=== PATIENT | male | born 1980 | race Caucasian/White ===

== ENCOUNTER 2019-12-01 00:20 | Emergency (ER) | payer OTHER ==
[~2019-12-01] VITALS: Ht 182.9 cm; Wt 81.8 kg
[2019-12-01] MEDS ORDERED: GABAPENTIN100 MG PO (00:50)
[2019-12-01 00:57] LABS: HEMATOCRIT 28.3 % (39.0-50.0); HEMOGLOBIN 8.6 g/dl (14.0-18.0); IMMATURE GRANULOCYTES 0.3 % (0.0-5.0); MEAN CELL VOLUME 78.6 fL CALC (80.0-100.0); MEAN CORPUSCULAR HGB 23.9 pG CALC (26.0-32.0); MEAN CORPUSCULAR HGB CONC 30.4 g/dL CAL (32.0-36.0); NEUT# 4.5 thou/uL (1.82-7.42); RED BLOOD COUNT 3.6 mill/uL (4.70-6.10); RED CELL DISTRI WIDTH 18.5 % (11.5-15.5)
[2019-12-01 01:22] LABS: ALBUMIN 4.1 g/dL (3.2-5.0); ALKALINE PHOSPHATASE 37 u/l (38-126); ANION GAP 12 (6-22 (CALC)); BILIRUBIN, TOTAL 0.2 mg/dL (0.0-1.4); BUN 15 mg/dL (9-20); BUN/CREATININE RATIO 17 (12-20 (CALC)); CARBON DIOXIDE 27 mmol/l (22-30); CHLORIDE 102 mmol/l (95-108); CREATININE 0.9 mg/dL (0.7-1.3); GFR > 60 ML/MIN (>=60 (CALC)); GFR FOR AFR.AMER. > 60 ML/MIN (>=60 (CALC)); POTASSIUM 4.3 mmol/l (3.5-5.1); SGOT/AST 36 u/l (17-59); SODIUM 137 mmol/l (137-146); TOTAL PROTEIN 6.6 g/dL (6.3-8.2)
[2019-12-01] MEDS ORDERED: CHROMAGEN1 CAP PO (01:47)
[2019-12-01 01:56] VITALS: BP 118/63
== END 2019-12-01 02:03 | DRG 551 ==
LOC: ED 00:20
PROVIDERS: Family Medicine
DX: S16.1XXA Strain of muscle, fascia and tendon at neck level, initial encounter (principal); S51.811A Laceration without foreign body of right forearm, initial encounter; D64.9 Anemia, unspecified; U07.1 COVID-19; G40.909 Epilepsy, unspecified, not intractable, without status epilepticus; B19.20 Unspecified viral hepatitis C without hepatic coma; W18.30XA Fall on same level, unspecified, initial encounter; Y92.149 Unspecified place in prison as the place of occurrence of the external cause; X83.8XXA Intentional self-harm by other specified means, initial encounter

== ENCOUNTER 2020-02-08 22:43 | Emergency (ER) | payer OTHER ==
[~2020-02-08] VITALS: Ht 182.9 cm; Wt 82.0 kg
[~2020-02-08 22:43] MED LIST: CHROMAGEN1 CAP PO; GABAPENTIN100 MG PO
[2020-02-08 23:17] VITALS: BP 106/59
[2020-02-08 23:39] LABS: HEMATOCRIT 24.6 % (39.0-50.0); IMMATURE GRANULOCYTES 0.3 % (0.0-5.0); MEAN CORPUSCULAR HGB 19.4 pG CALC (26.0-32.0); MEAN CORPUSCULAR HGB CONC 27.2 g/dL CAL (32.0-36.0); NEUT# 4.7 thou/uL (1.82-7.42); RED BLOOD COUNT 3.45 mill/uL (4.70-6.10); RED CELL DISTRI WIDTH 17.4 % (11.5-15.5)
[2020-02-08 23:48] LABS: HEMOGLOBIN 6.7 g/dl (14.0-18.0); MEAN CELL VOLUME 71.3 fL CALC (80.0-100.0)
== END 2020-02-09 00:25 | disposition left against medical advice (07) | DRG 605 ==
LOC: ED 22:43
PROVIDERS: Family Medicine
DX: S51.811A Laceration without foreign body of right forearm, initial encounter (principal); D64.9 Anemia, unspecified; X78.9XXA Intentional self-harm by unspecified sharp object, initial encounter; Y92.143 Cell of prison as the place of occurrence of the external cause; Z91.19 Patient's noncompliance with other medical treatment and regimen

== ENCOUNTER 2020-02-14 11:06 | Observation (INO) | payer OTHER ==
[2020-02-14] VITALS (7 sets, daily range): BP systolic 109–132; BP diastolic 53–71
[~2020-02-14] VITALS: Ht 182.9 cm; Wt 81.0 kg
--- NOTE | 2020-02-14 11:08 | NUR ---
PT TO ROOM BY EMS. AOX4. PT CURRENTLY IN NO DISTRESS
--- NOTE | 2020-02-14 11:30 | NUR ---
PATIENT REQUESTING LUNCH TRAY. WHEN INFORMED PATIENT OF THE NEED TO HAVE COVID TEST HE STATES "I ALREADY HAD THAT SHIT, I AM NOT GETTING ANOTHER ONE OF THOSE TESTS". MD NOTIFIED AND IS AWARE THAT PATIENT REFUSED. PATIENT ALSO STATES THAT HE WILL NOT ALLOW US TO GIVE HIM A BLOOD TRANSFUSION UNLESS HE IS ADMITTED UPSTAIRS.
[2020-02-14 11:41] LABS: IMMATURE GRANULOCYTES 0.4 % (0.0-5.0); MEAN CELL VOLUME 70.5 fL CALC (80.0-100.0); MEAN CORPUSCULAR HGB 19.1 pG CALC (26.0-32.0); MEAN CORPUSCULAR HGB CONC 27.1 g/dL CAL (32.0-36.0); NEUT# 2.77 thou/uL (1.82-7.42); RED BLOOD COUNT 2.51 mill/uL (4.70-6.10); RED CELL DISTRI WIDTH 17.3 % (11.5-15.5)
--- NOTE | 2020-02-14 11:43 | NUR ---
IRA FROM THE LAB PRANA[facility] IS 4.8
[2020-02-14 11:44] LABS: HEMOGLOBIN 4.8 g/dl (14.0-18.0)
[2020-02-14 11:45] LABS: HEMATOCRIT 17.7 % (39.0-50.0)
[2020-02-14 11:56] LABS: ACT PARTIAL THROMBO TIME 20.2 SECONDS (20.0-32.5); ALBUMIN 4.1 g/dL (3.2-5.0); ALKALINE PHOSPHATASE 27 u/l (38-126); ANION GAP 9 (6-22 (CALC)); BILIRUBIN, TOTAL 0.2 mg/dL (0.0-1.4); BUN 15 mg/dL (9-20); BUN/CREATININE RATIO 16 (12-20 (CALC)); CARBON DIOXIDE 30 mmol/l (22-30); CHLORIDE 104 mmol/l (95-108); CREATININE 0.9 mg/dL (0.7-1.3); GFR > 60 ML/MIN (>=60 (CALC)); GFR FOR AFR.AMER. > 60 ML/MIN (>=60 (CALC)); INTERNATIONAL NORMALIZED RATIO 1.1 RATIO (0.7-1.3); POTASSIUM 3.8 mmol/l (3.5-5.1); PROTHROMBIN TIME 10.5 SECONDS (9.0-12.5); SGOT/AST 17 u/l (17-59); SODIUM 139 mmol/l (137-146); TOTAL PROTEIN 6.7 g/dL (6.3-8.2)
--- NOTE | 2020-02-14 12:24 | NUR ---
NEW IV ACCESS INITIATED PER PT REQUEST EMS SITE WAS PAINFUL PER PT. #20 IV STARTED IN LEFT WRIST.--PT TOLERATED WELL. SECURITY FLEX OFFICER IN PLACE. GUARDS X 1 BEDSIDE AND X 1 OUTSIDE OF ROOM. CALL LIGHT WITHIN REACH.
--- NOTE | 2020-02-14 12:35 | NUR ---
PATIENT REFUSING TO HAVE BLOOD TRANSFUSION UNTIL HE IS UP IN HIS ROOM. MD IS AWARE.
--- NOTE | 2020-02-14 12:45 | NUR ---
MEKHI YEAST DISTILLER AT BEDSIDE.
[2020-02-14] MEDS ORDERED: KEFLEX500 MG PO (13:07)
--- NOTE | 2020-02-14 13:17 | NUR ---
CALL PLACED TO NURSE BLAKE AT [facility] TO INQUIRE ABOUT MEDICATION LIST WELL COVID TEST RESULTS. SHE WILL CALL BACK WITH INFORMATION.
--- NOTE | 2020-02-14 13:20 | NUR ---
CALL PLACED TO [facility], NO ANSWER.
--- NOTE | 2020-02-14 13:30 | NUR ---
CALL PLACED TO [facility], NURSE UNABLE TO TAKE REPORT.
--- NOTE | 2020-02-14 13:35 | NUR ---
PATIENT WANTING COVID SWAB NOW THAT HE FOUND OUT HE HAS TO GO TO A COVID ROOM DUE TO HIM REFUSING THE SWAB. COVID ANTIGEN SWAB COMPLETED AND PATIENT AND GUARDS AWARE OF PENDING RESULTS AND WAIT TIME.
--- NOTE | 2020-02-14 14:30 | NUR ---
PATIENT AND GUARDS AWARE OF CONTINUED WAIT TIME FOR NEW ROOM ASSIGNMENT THE ANTIGEN TEST WAS NEGATIVE.
--- NOTE | 2020-02-14 15:00 | NUR ---
PATIENT STATES THAT HE TAKES 800MG GABAPENTIN TID FOR SEIZURES. HE SATES HE KEEPS IT ON PERSON.
[2020-02-14] MEDS ORDERED: GABAPENTIN100 MG PO (15:09)
--- NOTE | 2020-02-14 15:10 | NUR ---
PATIENT REPORT CALLED TO RENA BUTLER.
--- NOTE | 2020-02-14 15:20 | NUR ---
Admission Note Report Given to: RENA MALDONADO Transported by: X Wheelchair Stretcher Transported with: X Nurse X Transporter X Patent IV O2 X Auxiliary Plant Operator Location: ICU X MS2 PATIENT TO ROOM 277 IN STABLE CONDITION.
--- NOTE | 2020-02-14 16:33 | NUR ---
REPORT RECEIVED FROM SHAR IN ED, PT ARRIVED ON UNIT @ 1523 VIA W/C ACCOMPANIED BY 2 GUARDS. ALERT AND ORIENTED X 4, DENIES PAIN, TELE MONITOR IN PLACE,ORIENTED TO ROOM AND CALL [facility], REQUESTING SHOWER AT THIS TIME AND ALLOWED TO HAVE ONE, REQUESTING FOOD AFTER SHOWER STATING HE IS HUNGRY, SNACK OFFERED, SETTLED IN BED AT THIS TIME. EDUCATED ON PRBC ADMINISTRATION, STATED HE IS [facility] AND IF WE HAV A SUBSTITUTE. ADVISED NURSE WOULD HAVE TO CONTACT MD AT THIS TIME TO GET THAT INFORMATION, PT THEN SAID HE WOULD ACCEPT BLOOD AND SIGNED CONSENT AFTER EDUCATION.
--- NOTE | 2020-02-14 16:50 | NUR ---
TOLERATING PRBC TRANSFUSION WELL FOR FIRST 15 MINS, WILL CONTINUE TO MONITOR.
--- NOTE | 2020-02-14 18:55 | NUR ---
PT IN RESTROOM, GUARDS X2 AT BEDSIDE. WILL FOLLOW-UP FOR PRBC TRANSFUSION.
--- NOTE | 2020-02-14 19:15 | NUR ---
PT ASKING FOR CRACKERS AND COKES/PROVIDED. PRBC RUNNING, NO S/O DISTRESS NOTED. PT IS EATING ICECREAM AT THIS TIME. 3 GUARDS AT BEDSIDE.
--- NOTE | 2020-02-14 19:30 | NUR ---
1ST UNIT OF PRBC'S COMPLETED AT THIS TIME. PT IS ASKING FOR A BREAK IN BETWEEN TRANSFUSION UNITS. DISCUSSED THE NEED TO GET BOTH UNITS IN, PT REPORTS FEELING A "LITTLE NAUSEOUS FROM TRANSFUSSION" PT DENIES ANY OTHER SYMPTOMS. PT IS EATING ICECREAM AND ASKING FOR COKE. REFUSED NEED FOR ZOFRAN, I ENCOURAGED PT TO STOP EATING ICECREAM, PROVIDED SALTINE CRACKERS AND GINGERALE FOR STOMACH COMFORT, VERBALIZED UNDERSTANDING. DENIES SOB, ITCHING OR ANY OTHER DISTRESSES. V/S OBTAINED AT THIS TIME/STABLE. GUARDS X2 AT BEDSIDE. NS RUNNING KVO AWAITING TO PROVIDED 2ND UNIT OF PRBC'S. WILL CHECK BACK IN WITH PT TO ATTEMPT TO ADMINISTER 2ND UNIT.
--- NOTE | 2020-02-14 20:15 | NUR ---
NS RUNNING KVO, I ENCOURAGED 2ND UNIT OF PRBC'S FOR PT, ASKING TO RECEIVED IT "LATER." WILL FOLLOW-UP IN AN HOUR.
--- NOTE | 2020-02-14 21:53 | NUR ---
2ND UNIT OF PRBC'S STARTED AT THIS TIME. PT IS AWAKE, ALERT AND TALKING TO GUARD AT BEDSIDE. PT IS ASKING FOR SANDWICH, PROVIDED CRACKERS, NO SANDWICHES AVAILABLE AT THIS TIME. REACTION SYMPTOMS REVIEWED WITH PT AT THIS TIME, VERBALIZED UNDERSTANDING OF WHAT TO REPORT. WILL CONTINUE TO MONITOR PT FOR THE FIRST 15 MINUTES OF INFUSION AND REASSESS V/S AT THAT TIME.
--- NOTE | 2020-02-14 22:57 | NUR ---
V/S ASSESSED, PT UP IN BED TALKING TO GUARD AT BEDSIDE. VERY TALKATIVE. NO S/O DISTRESS, DENIES ITCHING, NAUSEA, SOB OR ANY OTHER SYMPTOMS. ASKING FOR MORE CRACKERS AND ICECREAM.
--- NOTE | 2020-02-14 23:38 | NUR ---
IVPUMP SOUNDED, PRBC STILL RUNNING @140 AT THIS TIME, SITE APPEARS HEALTHY. PT DENIES ANY ADVERSE REACTIONS. PT AWAKE AND TALKING TO GUARDS AT BEDSIDE. TV AND LIGHTS ARE STILL ON.
[2020-02-15] VITALS (7 sets, daily range): BP systolic 101–128; BP diastolic 53–74
--- NOTE | 2020-02-15 00:15 | NUR ---
2ND UNIT OF PRBC'S COMPLETED AT THIS TIME. PT TOLERATED WELL, NO S/O DISTRESS NOTED. PT UP TO RESTROOM, NOT SHACKLED TO BED ANYMORE AT THIS TIME, EVEN WHILE IN BED PRIOR TO RESTROOM. GUARDS X2 AT BEDSIDE.
--- NOTE | 2020-02-15 01:30 | NUR ---
PT CALLED TO REPORT IV PUMP BEEPING, IVPUMP FOUND TO HAVE BEEN TURNED OFF AGAIN FOR 2ND TIME THIS EVENING. I ASKED THE PT NOT TO TURN IT OFF EXPLAINING THAT IT WILL CLOT AND HE WILL NEED A NEW IV SITE. PT VERBALIZED "I DIDN'T I JUST SILENCED IT" PUMP WAS FOUND TURNED OFF AND NOT RUNNING. PT ASKING FOR ICECREAM/PROVIDED TWO DIFFERENT FLAVORS OF ICECREAM. PT ASKED IF IV FLUIDS COULD BE TURNED OFF SINCE THEY ARE MAKING HIM HAVE TO USE THE RESTROOM SO MUCH. I OFFERED URINAL AT BEDSIDE AND ALSO OFFERED TO DISCONTINUE IVF IF HE DID NOT WANT THEM BUT DID ADVISE HIM THAT THE DOCTOR HAD RECOMMENDED THEM FOR PART OF HIS TREATMENT. HE REPLIED, "BUT WHAT DO YOU TELL ME TO DO?" I REPLIED THAT I CANNOT ADVISE TO DISCONTINUE THE FLUIDS BECAUSE THE DOCTOR ORDERED THEM, BUT THAT THE PATIENT HE HAS EVERY RIGHT TO REFUSE ANY TREATMENT OR MEDICATION OFFERED. HE REPLIED, "I DON'T WANT TO REFUSE, YOU ARE JUST PLAYING ME NOW, THAT'S BS, YOU ARE PLAYING ME." I STATED THAT I AM SIMPLY EXPLAINING HIS RIGHTS A PATIENT, "DO YOU WANT ME TO DISCONTINUE THE FLUIDS OR LEAVE THEM RUNNING?" PT REPLIED, "NO DON'T DISCONNECT THEM NOW, I DIDN'T REFUSE THEM, YOU JUST PLAYIN ME NOW." I LEFT THE IVF RUNNING AT THIS TIME AND LEFT THE ROOM WITH CALL LIGHT AT SIDE AND GUARDS X2 AT BEDSIDE.
--- NOTE | 2020-02-15 03:25 | NUR ---
UPON RETURNING TO MED SURG UNIT, I WAS INFORMED BY HOUSE SUPERVISION THAT THE GUARD CAME OUT TO WARM HIS FOOD AND ASKED FOR CLARIFICATION ON WHAT I MEANT THE PATIENTS NURSE BY SAYING "HE CAN REFUSE IVFLUIDS" REPORTING TO HER THAT THE PT TOOK IT PERSONALLY IF I WAS TREATING HIM DIFFERENTLY. SHE INFORMED ME THAT SHE REASSURED HIM THAT IS WHAT WE EDUCATE ALL PATIENTS ON AND I WAS NOT TREATING HIM DIFFERENTLY THAN OTHER PATIENTS, HE STATED THAT THE PT HAD NOT EATEN AND WAS HUNGRY. SHE REPORTS THAT SHE THEN PROVIDED A WARMED TV DINNER TO THE PATIENT.
--- NOTE | 2020-02-15 03:57 | NUR ---
PR INTERN AND MANUFACTURING TECH ENTERED THE ROOM. PT'S PILLOW WAS ON THE FLOOR WITHOUT A PILLOW CASE. GUARDS X2 AT BEDSIDE. PT IS AWAKE AND TALKING TO GUARD. I REPLACE PILLOWCASE ON PILLOW AND PROVIDE TO PT, HE ASKS FOR ADDITIONAL ICECREAM AND CRACKERS/PROVIDED. PT HAS NOT SLEPT TONIGHT AND HAS EATEN MULTIPLE ICECREAM, CRACKERS, COKES AND TV DINNER DURING MY SHIFT. V/S ASSESSED AT THIS TIME.
[2020-02-15 05:07] LABS: HEMATOCRIT 23.2 % (39.0-50.0); IMMATURE GRANULOCYTES 0.4 % (0.0-5.0); MEAN CORPUSCULAR HGB 21.4 pG CALC (26.0-32.0); NEUT# 3.57 thou/uL (1.82-7.42); RED BLOOD COUNT 3.04 mill/uL (4.70-6.10); RED CELL DISTRI WIDTH 18.5 % (11.5-15.5)
[2020-02-15 05:15] LABS: HEMOGLOBIN 6.5 g/dl (14.0-18.0)
[2020-02-15 05:16] LABS: MEAN CELL VOLUME 76.3 fL CALC (80.0-100.0)
[2020-02-15 05:27] LABS: ALBUMIN 4.1 g/dL (3.2-5.0); ALKALINE PHOSPHATASE 31 u/l (38-126); BUN 15 mg/dL (9-20); BUN/CREATININE RATIO 16 (12-20 (CALC)); CARBON DIOXIDE 27 mmol/l (22-30); CHLORIDE 109 mmol/l (95-108); GFR > 60 ML/MIN (>=60 (CALC)); GFR FOR AFR.AMER. > 60 ML/MIN (>=60 (CALC)); SGOT/AST 14 u/l (17-59); SODIUM 141 mmol/l (137-146); TOTAL PROTEIN 6.5 g/dL (6.3-8.2)
--- NOTE | 2020-02-15 05:27 | NUR ---
ED CALLED TO REPORT PT OFF OPTICAL BRIGHTENER MAKER HELPER. OPTICAL BRIGHTENER MAKER HELPER FOUND UNPLUGGED FROM BOX/REPLACED PLUG TO BOX, PT IS UP ON SIDE OF THE BED TALKING TO GUARD. LIGHTS AND TV ON. PT HAS NOT SLEPT SO FAR THIS SHIFT.
[2020-02-15 05:30] LABS: ANION GAP 10 (6-22 (CALC)); BILIRUBIN, TOTAL 0.3 mg/dL (0.0-1.4); POTASSIUM 4.6 mmol/l (3.5-5.1)
--- NOTE | 2020-02-15 05:53 | NUR ---
LAB CALLED WITH CRITICAL HGB 6.5. WILL NOTIFY PHYSICIAN.
--- NOTE | 2020-02-15 08:35 | NUR ---
ASSESSMENT IS COMPLETED: IV SITE IS FREE FROM REDNESS OR EDEMA. HR IS REG,PULSES ARE STRONG X4, ABD IS SOFT WITH ACTIVE BS. BREATH SOUNDS ARE CLEAR BILATERALLY. TELE MONITOR IN PLACE. 2 GUARDS PRESENT IN THE ROOM. CONTINUE TO OBSERVE AND MONITOR.
--- NOTE | 2020-02-15 10:08 | NUR ---
IST UNIT OF BLOOD TRANSFUSING. PT TOLERATING WELL. PT"STATED NOT FEELING WELL". WONT SAY WHAT IS WRONG. GUARDS ARE IN DIEGO ROOM AT BEDSIDE.
--- NOTE | 2020-02-15 11:14 | NUR ---
PT IS LAYING DOWN ONT HE BED, BP IS 104/53 ASYMPTOMATIC
--- NOTE | 2020-02-15 12:30 | NUR ---
PT HAS BEEN RESTING OFF AND ON. BLOOD IS ALMOST FINISHED INFUSING. IV SITE IS FREE FROM REDNESS OR EDEMA.
--- NOTE | 2020-02-15 13:21 | NUR ---
PT WAS EATING WHILE BP WAS CHECKING.
--- NOTE | 2020-02-15 15:20 | NUR ---
DISCHARGE INSTRUCTIONS GIVEN TO PT AND GUARDS/ IV SITE DISCONTINEUD CATHETET INTACT NO REDNESS OR EDEMA. CONTINUE TO OSBERVE AND MONITOR.
--- NOTE | 2020-02-15 15:30 | NUR ---
Discharge instructions given. Patient verbalizes understanding of same. Discharged in stable condition via Wheelchair to [facility] with *Other. All belongings sent with pt.
--- NOTE | 2020-02-15 16:40 | NUR ---
[facility] CALLED ATTEMPTED TO CALL BACK NO ANSWER
--- NOTE | 2020-02-15 17:11 | NUR ---
SPOKE WITH [facility]. MEMBER INQUIRED IF PT WAS SWABBED. INFORMED THAT PT REFUSED THE SWAB AT FIRST AND WAS INFORMED HE WOULD NEED TO GO TO THE [facility] . PT CHANGED HIS MIND LET THEM SWAB AND WAS NEGATIVE. WILL INFORM THE CAPTAIN.
== END 2020-02-15 15:17 | DRG 812 ==
LOC: ED 11:06 → MS2 11:59 → ED 12:00 → ED-I 12:00 → MS2 14:49
PROVIDERS: Nurse Practitioner; ADMIT Internal Medicine; ATTEND Internal Medicine
PROC: 30233N1 Transfusion of Nonautologous Red Blood Cells into Peripheral Vein, Percutaneous Approach (ICD-10-PCS; principal; 2020-02-14)
PROC: 30233N1 Transfusion of Nonautologous Red Blood Cells into Peripheral Vein, Percutaneous Approach (ICD-10-PCS; 2020-02-14)
PROC: 30233N1 Transfusion of Nonautologous Red Blood Cells into Peripheral Vein, Percutaneous Approach (ICD-10-PCS; 2020-02-15)
DX: D62 Acute posthemorrhagic anemia (principal); G40.909 Epilepsy, unspecified, not intractable, without status epilepticus; B19.20 Unspecified viral hepatitis C without hepatic coma; R76.8 Other specified abnormal immunological findings in serum; Z91.5 Personal history of self-harm; Z20.828 Contact with and (suspected) exposure to other viral communicable diseases
CPT/HCPCS: P9016